=== PATIENT | female | born 1965 ===

== ENCOUNTER 2017-04-24 13:49 | Emergency (ER) | payer MEDICAID ==
[2017-04-24 13:49] VITALS: BMI 27.4
[2017-04-24 13:57] VITALS: TEMP 97.8
[2017-04-24] MEDS ORDERED: Sodium Chloride 0.9% 1,000 ML IV STA (14:36)
--- NOTE | 2017-04-24 15:28 | ED PDOC ---
Arrival/HPI - General Chief Complaint: Trauma Time Seen by Provider: 04/24/17 14:35 - History of Present Illness Narrative History of Present Illness (Text): 04/24/17 15:24 51yo female in the ER after a mechanical trip and fall, happened prior to her coming in. States she fell hurting her L. yarsanism/above eyebrow, R. wrist, L. knee. Pt states she has some nausea and a headache at this time. No other complaints. Past Medical History - Provider Review Nursing Documentation Reviewed: Yes - Infectious Disease Hx of Infectious Diseases: None - Cardiac Hx Hypertension: Yes - Psychiatric Hx Depression: No Hx Emotional Abuse: No Hx Physical Abuse: No Hx Substance Use: No - Anesthesia Hx Anesthesia: No - Suicidal Assessment Feels Threatened In Home Enviroment: No Family/Social History - Physician Review Nursing Documentation Reviewed: Yes Family/Social History: Unknown Family HX Smoking Status: Never Smoked Hx Alcohol Use: No Hx Substance Use: No Hx Substance Use Treatment: No Allergies/Home Meds Allergies/Adverse Reactions: Allergies No Known Allergies Allergy (Verified 02/16/12 14:38) Home Medications: Home Meds Medication Instructions Recorded Confirmed Cholesterol Pill 02/16/12 02/16/12 Physical Exam - Physical Exam Narrative Physical Exam (Text): 04/24/17 15:29 - Review of Systems Constitutional: Normal. absent: Fatigue, Weight Change, Fevers Eyes: Normal ENT: denies sore throat, denies tristhmus Respiratory: Normal. absent: SOB, Cough, Sputum Cardiovascular: absent: Chest Pain, Palpitations, Syncope Gastrointestinal: Normal. absent: Abdominal Pain, Diarrhea, Nausea, Vomiting Genitourinary: Normal. absent: Dysuria, Frequency, Hematuria, vaginal bleeding Musculoskeletal: fall, neck pain, wrist and knee pain. absent: Back Pain Skin: no rashes, no erythema Neurological: absent: Focal Weakness Endocrine: Normal Hemo/Lymphatic: Normal Psychiatric: No suicidal or homicidal ideations Physical exam Patient appears age appropriate in no distress, speaking full sentences without difficulty Ecchymosis over L. eyebrow with no abrasions or lacerations. No nasal bone deformity or tenderness, no facial or jaw pain/swelling. No neck midline tenderness, thoracic and lumbar spine with no midline tenderness. Pt moving b/l upper and lower extremities without difficulty, 5/5 strength, with full active and passive ROM. Superficial abrasion over L. knee and bruising over the R. wrist. R. hand contracted, pt states this is chronic. Distal neurovasc fully intact. Abd soft/nt/nd, no hematomas, no peritoneal signs. Neg. pelvic rock. - Systems Exam Head: Present: Atraumatic, Normocephalic Pupils: Present: PERRL Extroacular Muscles: Present: EOMI Conjunctiva: Present: Normal Mouth: Present: Moist Mucous Membranes Neck: Present: Normal Range of Motion. No: MIDLINE TENDERNESS, Paraspinal Tenderness Respiratory/Chest: Present: Clear to Auscultation, Good Air Exchange. No: Respiratory Distress, Accessory Muscle Use, Tachypneic Cardiovascular: Present: Regular Rate and Rhythm, Normal S1, S2, Peripheal Pulses Present. No: Murmurs Abdomen: Present: Normal Bowel Sounds. No: Tenderness, Distention, Peritoneal Signs, Rebound, Guarding Back: Present: Normal Inspection. No: Midline Tenderness, Paraspinal Tenderness Neurological: Present: GCS=15, Speech Normal, cranial nerves II through XII fully intact with no cerebellar abnormality, neurosensory fully intact. No focal neurological deficits. Skin: Present: Warm, Dry, Normal Color. No: Rashes Lymphatic: Present: OX3, NI, NC Psychiatric: Present: Alert, Oriented x 3, Normal Insight, Normal Concentration Vital Signs Reviewed: Yes Vital Signs Temp Pulse Resp BP Pulse Ox 04/24/17 18:17 71 17 140/75 98 04/24/17 17:00 75 18 142/89 100 04/24/17 13:56 97.8 F 77 18 144/96 H 100 Temperature: Afebrile Blood Pressure: Hypertensive Pulse: Regular Respiratory Rate: Normal Appearance: Positive for: Well-Appearing Pain Distress: None Mental Status: Positive for: Alert and Oriented X 3 Finger Stick Blood Glucose: 131 Medical Decision Making ED Course and Treatment: 04/24/17 15:35 pt in the er after a mechanical fall pt is c/o nausea and a steven no focal neurological deficits on examination meds, imaging ordered 04/24/2017 16:21 Knee X-ray IMPRESSION: No acute displaced fracture, dislocation, or significant joint effusion identified. If symptoms persist or if there is continued clinical concern, x-ray follow-up in 7-10 days should be considered. Dictator : Lolis Dukes MD 04/24/2017 16:36 Wrist X-ray IMPRESSION: Suboptimal study due to severe limitations in patient positioning. No acute displaced fracture identified. Dictator : Lolis Dukes MD 04/24/2017 17:[address] IMPRESSION: No acute intracranial pathology identified. Dictator : Lolis Dukes MD 04/24/2017 17:[address] Impression: No acute findings of the maxillofacial bones. Limited visualization of the cervical spine reveals straightening of the normal cervical lordosis may be related to muscle spasm or positioning. Probable degenerative change at the dens tip. Correlate clinically. Dictator : Lolis Dukes MD 04/24/2017 17:[address] Impression: Straightening of the normal cervical lordosis may be related to muscle spasm or positioning. No evidence of acute fracture or subluxation. Additional findings as above. Dictator : Lolis Dukes MD 04/24/17 17:47 no acute findings on xrays and CTs pt in no distress and denies complaints states she does not have a STEVEN or dizziness/n/v at this time no acute focal neurological deficits on reeval pt ambulating with steady gait states she feels comfortable being dc'd home with outpatient f/u state she will f/u with Dr. Abebe outpatient Pt states she understands to return to the ER right away for new or worsening symptoms or for inability to f/u with PMD or specialist as instructed. Patient states that she fully agrees with and understands discharge instructions. States that she agrees with the plan and disposition. Verbalized and repeated discharge instructions and plan. I have given the patient opportunity to ask any additional questions. - Lab Interpretations Lab Results: Lab Results 04/24/17 15:11: POC Glucose (mg/dL) 131 H - RAD Interpretation Radiology Orders: 04/24/17 14:37 CERVICAL SPINE W/O CONTRAST [CT] Stat HEAD W/O CONTRAST [CT] Stat MAXILLOFACIAL W/O CONTRAST [CT] Stat KNEE W PATELLA BILAT 3 VIEW [RAD] Stat WRIST, RIGHT 3 VIEWS [RAD] Stat - Medication Orders Current Medication Orders: Discontinued Medications Sodium Chloride (Sodium Chloride 0.9%) 1,000 mls @ 1,000 mls/hr IV .Q1H STA Stop: 09/03/17 15:35 Last Admin: 04/24/17 15:07 Dose: 1,000 mls/hr Ondansetron HCl (Zofran Inj) 4 mg IVP STAT STA Stop: 04/24/17 14:37 Last Admin: 04/24/17 15:08 Dose: 4 mg Disposition/Present on Arrival - Present on Arrival Any Indicators Present on Arrival: No History of DVT/PE: No History of Uncontrolled Diabetes: No Urinary Catheter: No History of Decub. Ulcer: No History Surgical Site Infection Following: None - Disposition Have Diagnosis and Disposition been Completed?: Yes Diagnosis: Fall Disposition: HOME/ ROUTINE Disposition Time: 17:53 Patient Plan: Discharge Condition: GOOD Discharge Instructions (ExitCare): Post Concussion Syndrome (ED), Fall Prevention (ED) Additional Instructions: PLEASE RETURN TO THE EMERGENCY DEPARTMENT FOR NEW OR WORSENING SYMPTOMS. RETURN RIGHT AWAY IF YOU CANNOT FOLLOW UP WITH YOUR PRIMARY CARE DOCTOR, CLINIC, OR SPECIALIST IN 1-2 DAYS. Prescriptions: Ibuprofen [Motrin] 600 mg PO Q8 PRN #12 tab PRN Reason: Pain, Moderate (4-7) Ondansetron [Zofran Odt] 4 mg PO Q6 PRN #14 odt PRN Reason: Nausea/Vomiting Referrals: Ernesto Abebe MD [Primary Care Provider] - Follow up with primary Forms: [employer] (Danish)
--- NOTE | 2017-04-24 16:22 | RAD ---
PROCEDURE: Bilateral Knee Radiographs. HISTORY: Fall COMPARISON: None available. FINDINGS: Rotated bilateral views. BONES: Right Knee: No acute displaced fracture. Left Knee: No acute displaced fracture. JOINTS: Right Knee: No dislocation. Left knee: No dislocation. SOFT TISSUES: Right Knee: Unremarkable. No evidence of radiopaque foreign body. Left Knee: Unremarkable. No evidence of radiopaque foreign body. JOINT EFFUSION: Right Knee: No significant joint effusion identified. Left Knee: No significant joint effusion identified. OTHER FINDINGS: None. IMPRESSION: No acute displaced fracture, dislocation, or significant joint effusion identified. If symptoms persist or if there is continued clinical concern, x-ray follow-up in 7-10 days should be considered.
--- NOTE | 2017-04-24 16:37 | RAD ---
PROCEDURE: Right Wrist Radiographs. HISTORY: fall COMPARISON: None available. FINDINGS: Suboptimal examination due to patient's limitation with positioning. BONES: No acute displaced fracture. JOINTS: No dislocation. SOFT TISSUES: Unremarkable. No evidence of radiopaque foreign body OTHER FINDINGS: None. IMPRESSION: Suboptimal study due to severe limitations in patient positioning. No acute displaced fracture identified.
--- NOTE | 2017-04-24 17:04 | CT ---
PROCEDURE: CT HEAD WITHOUT CONTRAST. HISTORY: fall COMPARISON: Images from noncontrast head CT performed 02/16/12 TECHNIQUE: Axial computed tomography images were obtained through the head/brain without intravenous contrast. Radiation dose: Total exam DLP = 824.14 mGy-cm. This CT exam was performed using one or more of the following dose reduction techniques: Automated exposure control, adjustment of the mA and/or kV according to patient size, and/or use of iterative reconstruction technique. FINDINGS: HEMORRHAGE: No intracranial hemorrhage. BRAIN: No mass effect or edema. The maloney-white matter differentiation appears intact. Please note that MRI with diffusion imaging is more sensitive in the detection of acute ischemic event. VENTRICLES: No hydrocephalus. CALVARIUM: Unremarkable. PARANASAL SINUSES: Unremarkable as visualized. No significant inflammatory changes. MASTOID AIR CELLS: Unremarkable as visualized. No inflammatory changes. OTHER FINDINGS: None. IMPRESSION: No acute intracranial pathology identified.
--- NOTE | 2017-04-24 17:08 | CT ---
CT maxillofacial bones without IV contrast Indication: Fall Comparison: Noncontrast head CT performed the same day. Technique: Axial computed tomography images were obtained of the maxillofacial bones without the use of intravenous contrast. Coronal and sagittal reformatted images were generated and reviewed. This CT exam was performed using 1 or more of the falling dose reduction techniques: Automated exposure control, adjustment of the MAA and/or kV according to patient size, and/or use of iterative reconstruction technique. Radiation dose: Total exam DLP = 817.08 mGy-cm. Findings: Dental streak artifact. The facial bones appear intact without acute displaced fracture identified. The orbits appear unremarkable. The temporomandibular joints are located. The mastoid air cells appear clear. The visualized brain appears unremarkable. The paranasal sinuses appear clear without air-fluid levels. Limited visualization of the cervical spine reveals straightening of the normal cervical lordosis may be related to muscle spasm or positioning. Probable degenerative change at the dens tip. Correlate clinically. Impression: No acute findings of the maxillofacial bones. Limited visualization of the cervical spine reveals straightening of the normal cervical lordosis may be related to muscle spasm or positioning. Probable degenerative change at the dens tip. Correlate clinically.
--- NOTE | 2017-04-24 17:37 | CT ---
CT cervical spine without IV contrast Indication: Fall Comparison: None available. Technique: Axial computed tomography images were obtained of the cervical spine without the use of intravenous contrast. Coronal and sagittal reformatted images were created and reviewed. This CT exam was performed using 1 or more of the falling dose reduction techniques: Automated exposure control, adjustment of the MAA and/or kV according to patient size, and/or use of iterative reconstruction technique. Radiation dose: Total exam DLP = 522.63 mGy-cm. Findings: Straightening of the normal cervical lordosis may be related to muscle spasm or positioning. There is no evidence of acute fracture or subluxation. There is preserved alignment, vertebral body height, intervertebral disc spaces. The prevertebral soft tissues and spinolaminar lines appear intact. Probable degenerative change/ ossicles noted at the superior aspect of the atlas. The lateral masses are preserved. The dens tip is intact. There is proper alignment of the lateral masses of C1 with the C2 vertebral body. Included portions of the thyroid gland appear unremarkable. Included portions of lung apices appear clear. Impression: Straightening of the normal cervical lordosis may be related to muscle spasm or positioning. No evidence of acute fracture or subluxation. Additional findings as above.
[2017-04-24 18:18] VITALS: BP 140/75; PULSE 71; RESP 17; O2SAT 98
== END 2017-04-24 18:23 | disposition home or self-care (01) ==
LOC: ED 13:49
DX: R51 Headache (principal); R11.0 Nausea; W01.0XXA Fall on same level from slipping, tripping and stumbling without subsequent striking against object, initial encounter
CPT/HCPCS: 70450; 70486; 72125; 73110; 73562; 96361; 96374; 99285; J2405; J7040